=== PATIENT | female | born 1945 | race Caucasian/White ===

== ENCOUNTER 2018-01-21 09:03 | Day surgery (SDC) | payer MEDICARE, MEDICAID ==
[~2018-01-21] VITALS: Ht 167.6 cm; Wt 95.3 kg
[~2018-01-21 09:03] MED LIST: CARDIZEM CD 180 PO; COUMADIN5 MG PO; DIGOXIN0.125 MG PO; DIGOXIN0.25 MG PO; EMBRACE XX; FLONASE NASAL50 MCG; FLUARIX QUADRIV1 IN1 IM; FLUZONE SPLT1 M1 IM; GLIPIZIDE5 MG PO; HUMIR1; HYDROCHLOROT12.5 MG OR; HYDROCHLOROT12.5 MG PO; HYDROCO/APAP1 TA9 PO; INDERAL 20MG TA20 MG PO; LEVOTHROID88 MCG OR; LEVOTHYROXIN112 MC1 PO; LEVOTHYROXIN112 MCG PO; LEVOTHYROXIN88 MC1 PO; LEVOTHYROXIN88 MCG PO; LEVOTHYROXINE100 MCG PO; LISINOPRIL20 MG OR; LORTAB 5/3255 MG PO; MECLIZINE12.5 M1 PO; MEDDOSEPAK PO; METFORMIN HCL1000 MG PO; METFORMIN500 MG PO; METHOTREXATE2.5 MG PO; METOPROL TAR50 MG PO; METOPROLOL TART50 MG PO; PERCOCET 5/325M1 TAB PO; PRADAXA150 MG PO; PROMETHAZINE25 MG PO; PROPRANOLOL10 MG OR; REMICADE INJ100 MG IV; TRAMADOL HCL50 MG PO; TRICOR145 MG PO; WARFARIN5 MG PO; ZPAK PO; ZYRTEC-D ALG PO; [UNRECOGNIZED DRUG - OTHER] PO
[2018-01-21 12:39] VITALS: BP 113/74
== END 2018-01-21 12:20 | disposition home or self-care (01) ==
LOC: ENDO 09:03
PROVIDERS: ATTEND Internal Medicine Gastroenterology
PROC: 0DBH8ZX Excision of Cecum, Via Natural or Artificial Opening Endoscopic, Diagnostic (ICD-10-PCS; principal; 2018-01-21)
PROC: 0DBL8ZX Excision of Transverse Colon, Via Natural or Artificial Opening Endoscopic, Diagnostic (ICD-10-PCS; 2018-01-21)
DX: Z12.11 Encounter for screening for malignant neoplasm of colon (principal); C18.0 Malignant neoplasm of cecum; D12.3 Benign neoplasm of transverse colon; K64.4 Residual hemorrhoidal skin tags; K57.30 Diverticulosis of large intestine without perforation or abscess without bleeding; K64.8 Other hemorrhoids; I10 Essential (primary) hypertension; E11.9 Type 2 diabetes mellitus without complications; M06.9 Rheumatoid arthritis, unspecified; I48.91 Unspecified atrial fibrillation; E03.9 Hypothyroidism, unspecified

== ENCOUNTER 2018-04-01 08:57 | Day surgery (SDC) | payer MEDICARE, MEDICAID ==
[~2018-04-01] VITALS: Ht 167.6 cm; Wt 94.3 kg
[2018-04-01 11:05] VITALS: BP 100/55
== END 2018-04-01 11:15 | disposition home or self-care (01) ==
LOC: ENDO 08:57 → ORM 11:15 → ENDO 11:30
PROVIDERS: ATTEND Internal Medicine Gastroenterology
PROC: 0DBC8ZX Excision of Ileocecal Valve, Via Natural or Artificial Opening Endoscopic, Diagnostic (ICD-10-PCS; principal; 2018-04-01)
PROC: 0DBN8ZX Excision of Sigmoid Colon, Via Natural or Artificial Opening Endoscopic, Diagnostic (ICD-10-PCS; 2018-04-01)
DX: C18.2 Malignant neoplasm of ascending colon (principal); D12.5 Benign neoplasm of sigmoid colon; K57.30 Diverticulosis of large intestine without perforation or abscess without bleeding; K64.8 Other hemorrhoids; K64.4 Residual hemorrhoidal skin tags; I10 Essential (primary) hypertension; E11.9 Type 2 diabetes mellitus without complications; M06.9 Rheumatoid arthritis, unspecified; I48.91 Unspecified atrial fibrillation; E03.9 Hypothyroidism, unspecified

== ENCOUNTER 2018-08-11 07:51 | Emergency (ER) | payer MEDICARE ==
[~2018-08-11] VITALS: Ht 165.1 cm; Wt 95.0 kg
[2018-08-11 08:23] LABS: HEMATOCRIT 39.3 % (37.0-47.0); HEMOGLOBIN 12.2 g/dl (12.0-16.0); IMMATURE GRANULOCYTES 0.7 % (0.0-5.0); MEAN CELL VOLUME 92.7 fL CALC (80.0-100.0); MEAN CORPUSCULAR HGB 28.8 pG CALC (26.0-32.0); NEUT# 7.06 thou/uL (2.00-7.15); RED BLOOD COUNT 4.24 mill/uL (4.20-5.60); RED CELL DISTRI WIDTH 14.9 % (11.5-15.5)
[2018-08-11 09:11] LABS: ANION GAP 14 (6-22 (CALC)); BUN 20 mg/dL (8-23); BUN/CREATININE RATIO 29 (12-20 (CALC)); CARBON DIOXIDE 30 mmol/l (22-30); CHLORIDE 99 mmol/l (95-108); CREATININE 0.7 mg/dL (0.5-1.0); GFR > 60 ML/MIN (>=60 (CALC)); GFR FOR AFR.AMER. > 60 ML/MIN (>=60 (CALC)); SODIUM 139 mmol/l (137-146)
[2018-08-11 10:20] VITALS: BP 199/84
== END 2018-08-11 10:20 | disposition short-term general hospital (02) ==
LOC: ED 07:51
PROVIDERS: Family Medicine
DX: T18.128A Food in esophagus causing other injury, initial encounter (principal); E11.9 Type 2 diabetes mellitus without complications; I10 Essential (primary) hypertension; I48.91 Unspecified atrial fibrillation; M19.90 Unspecified osteoarthritis, unspecified site; F32.9 Major depressive disorder, single episode, unspecified; E03.9 Hypothyroidism, unspecified
CPT/HCPCS: J1610

== ENCOUNTER 2018-08-15 07:47 | Observation (INO) | payer MEDICARE ==
[~2018-08-15] VITALS: Ht 165.1 cm; Wt 95.0 kg
[2018-08-15] VITALS (15 sets, daily range): BP systolic 105–147; BP diastolic 47–98
[2018-08-15 08:49] LABS: IMMATURE GRANULOCYTES 0.2 % (0.0-5.0); MEAN CELL VOLUME 91.1 fL CALC (80.0-100.0); MEAN CORPUSCULAR HGB 28.6 pG CALC (26.0-32.0); MEAN CORPUSCULAR HGB CONC 31.4 g/L CALC (32.0-36.0); NEUT# 4.84 thou/uL (2.00-7.15); RED BLOOD COUNT 5.03 mill/uL (4.20-5.60); RED CELL DISTRI WIDTH 14.7 % (11.5-15.5)
[2018-08-15 08:56] LABS: ANION GAP 14 (6-22 (CALC)); BUN 20 mg/dL (8-23); BUN/CREATININE RATIO 24 (12-20 (CALC)); CARBON DIOXIDE 28 mmol/l (22-30); CHLORIDE 99 mmol/l (95-108); CREATININE 0.8 mg/dL (0.5-1.0); GFR > 60 ML/MIN (>=60 (CALC)); GFR FOR AFR.AMER. > 60 ML/MIN (>=60 (CALC)); POTASSIUM 4.2 mmol/l (3.5-5.1); SODIUM 138 mmol/l (137-146)
[2018-08-15 08:58] LABS: HEMATOCRIT 45.8 % (37.0-47.0); HEMOGLOBIN 14.4 g/dl (12.0-16.0)
[2018-08-15 18:26] LABS: C-REACTIVE PROTEIN 1.4 mg/dL (0-0.9)
[2018-08-15 18:54] LABS: TSH, 3RD GENERATION 1.84 uIU/mL (0.47 - 4.68)
[2018-08-16] VITALS (13 sets, daily range): BP systolic 118–140; BP diastolic 53–78
[2018-08-16 04:16] LABS: HEMATOCRIT 40.8 % (37.0-47.0); HEMOGLOBIN 12.7 g/dl (12.0-16.0); IMMATURE GRANULOCYTES 0.7 % (0.0-5.0); MEAN CELL VOLUME 90.7 fL CALC (80.0-100.0); MEAN CORPUSCULAR HGB 28.2 pG CALC (26.0-32.0); MEAN CORPUSCULAR HGB CONC 31.1 g/L CALC (32.0-36.0); NEUT# 6.08 thou/uL (2.00-7.15); RED BLOOD COUNT 4.5 mill/uL (4.20-5.60); RED CELL DISTRI WIDTH 14.4 % (11.5-15.5)
[2018-08-16 04:28] LABS: ALBUMIN 3.5 g/dL (3.2-5.0); ALKALINE PHOSPHATASE 80 u/l (38-126); ANION GAP 15 (6-22 (CALC)); BILIRUBIN, TOTAL 0.5 mg/dL (0.0-1.4); BUN 24 mg/dL (8-23); BUN/CREATININE RATIO 30 (12-20 (CALC)); CARBON DIOXIDE 30 mmol/l (22-30); CHLORIDE 97 mmol/l (95-108); CREATININE 0.8 mg/dL (0.5-1.0); GFR > 60 ML/MIN (>=60 (CALC)); GFR FOR AFR.AMER. > 60 ML/MIN (>=60 (CALC)); POTASSIUM 4.6 mmol/l (3.5-5.1); SGOT/AST 16 u/l (9-36); SGPT/ALT 43 u/l (11-66); SODIUM 137 mmol/l (137-146); TOTAL PROTEIN 6.6 g/dL (6.3-8.2)
[2018-08-17] VITALS: BP 119/53
[2018-08-17 04:10] VITALS: BP 151/59
[2018-08-17 04:57] LABS: HEMATOCRIT 40.1 % (37.0-47.0); HEMOGLOBIN 12.4 g/dl (12.0-16.0); IMMATURE GRANULOCYTES 0.6 % (0.0-5.0); MEAN CELL VOLUME 92.6 fL CALC (80.0-100.0); MEAN CORPUSCULAR HGB 28.6 pG CALC (26.0-32.0); MEAN CORPUSCULAR HGB CONC 30.9 g/L CALC (32.0-36.0); NEUT# 11.11 thou/uL (2.00-7.15); RED BLOOD COUNT 4.33 mill/uL (4.20-5.60); RED CELL DISTRI WIDTH 14.3 % (11.5-15.5)
[2018-08-17 05:10] LABS: ANION GAP 15 (6-22 (CALC)); BUN 24 mg/dL (8-23); BUN/CREATININE RATIO 34 (12-20 (CALC)); CARBON DIOXIDE 27 mmol/l (22-30); CHLORIDE 99 mmol/l (95-108); CREATININE 0.7 mg/dL (0.5-1.0); GFR > 60 ML/MIN (>=60 (CALC)); GFR FOR AFR.AMER. > 60 ML/MIN (>=60 (CALC)); POTASSIUM 4.6 mmol/l (3.5-5.1); SODIUM 137 mmol/l (137-146)
[2018-08-17 06:00] VITALS: BP 108/52
[2018-08-17 07:30] VITALS: BP 108/52
[2018-08-17 08:05] VITALS: BP 108/52
[2018-08-17] MEDS ORDERED: MEDDOSEPAK PO (08:20)
== END 2018-08-17 09:25 | disposition home or self-care (01) ==
LOC: ED 07:47 → ED-I 09:15 → ED 09:27 → ICU 09:28
PROVIDERS: Family Medicine; ADMIT Internal Medicine Geriatric Medicine; ATTEND Internal Medicine Geriatric Medicine
DX: T78.40XA Allergy, unspecified, initial encounter (principal); R22.0 Localized swelling, mass and lump, head; H02.402 Unspecified ptosis of left eyelid; E11.9 Type 2 diabetes mellitus without complications; I10 Essential (primary) hypertension; M19.90 Unspecified osteoarthritis, unspecified site; F32.9 Major depressive disorder, single episode, unspecified; E03.9 Hypothyroidism, unspecified; I48.2 Chronic atrial fibrillation; I25.10 Atherosclerotic heart disease of native coronary artery without angina pectoris; M06.9 Rheumatoid arthritis, unspecified; X58.XXXA Exposure to other specified factors, initial encounter; Z79.01 Long term (current) use of anticoagulants; Z90.49 Acquired absence of other specified parts of digestive tract; Z85.038 Personal history of other malignant neoplasm of large intestine

== ENCOUNTER 2021-11-04 06:53 | Day surgery (SDC) | payer MEDICARE ==
[~2021-11-04] VITALS: Ht 165.1 cm; Wt 105.2 kg
[~2021-11-04 06:53] MED LIST changes: +FISH OIL1000 MG PO; +GABAPENTIN100 MG PO; +OMEPRAZOLE DR20 MG PO; +SIMVASTATIN5 MG PO; +TOPROL XL100 MG PO; +TRULICITY0.75 MG/0. SC; +VITAMIN D31000 UNI1 PO
[2021-11-04 08:04] LABS: PROTHROMBIN TIME 10.8 SECONDS (9.0-12.5)
[2021-11-04 08:53] VITALS: BP 124/76
== END 2021-11-04 09:05 | disposition home or self-care (01) ==
LOC: ENDO 06:53 → ORM 08:00 → ENDO 08:00
PROVIDERS: Nurse Anesthetist, Certified Registered; ATTEND Surgery
PROC: 0DJD8ZZ Inspection of Lower Intestinal Tract, Via Natural or Artificial Opening Endoscopic (ICD-10-PCS; principal; 2021-11-04)
DX: K57.30 Diverticulosis of large intestine without perforation or abscess without bleeding (principal); K64.8 Other hemorrhoids; I10 Essential (primary) hypertension; I48.91 Unspecified atrial fibrillation; E78.5 Hyperlipidemia, unspecified; Z86.010 Personal history of colon polyps; Z85.038 Personal history of other malignant neoplasm of large intestine; Z90.49 Acquired absence of other specified parts of digestive tract; Z79.01 Long term (current) use of anticoagulants